=== PATIENT | male | born 1990 | race Caucasian/White ===

== ENCOUNTER 2019-12-01 09:44 | Emergency (ER) | payer OTHER, SELFPAY ==
[2019-12-01 09:46] VITALS: BP 126/79; PULSE 78; RESP 15; TEMP 35.9; O2SAT 97; BMI 31.0
--- NOTE | 2019-12-01 10:05 | ED.VIS.GEN ---
History of Present Illness Chief Complaint: Laceration Informant: Patient Narrative: 29-year-old male states that he cut his right pinky at work on a piece of copper. Initially was bleeding but he had this controlled upon arrival. He states his tetanus immunization is up-to-date. He has minimal pain. He has no loss of function or sensation. Past Medical History - Allergies and Home Meds Allergies/Adverse Reactions: Allergies No Known Allergies Allergy (Verified 12/01/19 09:45) Prior records reviewed: Yes Surgical History: noncontributory Smoking Status: Never smoker Alcohol: None Drugs: None Review of Systems General: Denies: Chills, Fever, Sweats Eyes: Denies: Visual changes - bilaterally, Diplopia ENT: Denies: Rhinorrhea, Sore throat Cardiovascular: Denies: Chest pain, Palpitations Respiratory: Denies: Dyspnea, Cough, Dyspnea on exertion Gastrointestinal: Denies: Abdominal pain, Nausea, Vomiting, Diarrhea, Melena, Hematochezia Genitourinary: Denies: Dysuria, Hematuria, Frequency Musculoskeletal: Denies: Back pain, Extremity Pain Skin: Reports: Wounds, - - Centimeter laceration to right pinky. Denies: Rash Neurological: Denies: Headache, Weakness, Numbness Physical Exam Vital Signs/Narrative: Vital Signs Temp Pulse Resp BP Pulse Ox 12/01/19 09:46 96.7 F L 78 15 126/79 H 97 General: Well nourished, Well developed Head: Normocephalic, Atraumatic Cardiovascular: Regular rate, Regular rhythm Respiratory: No distress Skin: - - 1 cm laceration to the dorsum of the PIP on the right hand. This is well approximated. There is no active bleeding. Diagnostic/Tx/Re-eval - Medical Decision Making Patient presents with laceration which is stopped bleeding and is well approximated. Earlier he was pulling it apart very hard and he was bleeding and he thought it was much deeper. It is a minimal superficial laceration which could possibly take 1 stitch if necessary however again it is not bleeding as well approximated. I did offer him suture and he declined. He states his tetanus is up-to-date. His wound was cleaned and he was placed in a dressing. He is given return precautions as well as work restrictions. Impression: 1. Right hand laceration 1 cm 2. Worker Comp Claim ED Disposition - Plan for ED Patient: Disposition: Home or Assisted Living Instructions: ED Laceration Hand
[2019-12-01 10:27] VITALS: RESP 16
--- NOTE | 2019-12-01 10:28 | ED.RN ---
INSTRUCTED PT TO FOLLOW UP AT NOW CLINIC FOR DRUG TESTING IF REQUIRED. REVIEWED D/C INSTRUCTIONS, FOLLOW UP CARE, AND S/S THAT WOULD WARRANT A RETURN TO THE ED WITH PT. PT VERBALIZED AN UNDERSTANDING AND DENIES FURTHER QUESTIONS, FOR THIS RN. PT SKIN P/W/D, RESP EVEN AND UNLABORED, PT A&O X 3, NO DISTRESS NOTED. PT AMBULATED OUT OF ED, GAIT STEADY.
== END 2019-12-01 10:29 | disposition home or self-care (01) ==
PROVIDERS: Emergency Provider Student in an Organized Health Care Education/Training Program
DX: S61.216A Laceration without foreign body of right little finger without damage to nail, initial encounter (principal); W26.8XXA Contact with other sharp object(s), not elsewhere classified, initial encounter; Y93.89 Activity, other specified; Y92.89 Other specified places as the place of occurrence of the external cause; Y99.0 Civilian activity done for income or pay
CPT/HCPCS: 99282